=== PATIENT | female | born 1965 | race Caucasian/White ===

== ENCOUNTER 2020-03-13 08:33 | Outpatient (CLI) | payer BC, SELFPAY ==
--- NOTE | 2020-03-13 08:40 | MM_ITS ---
WS: [id number] BILATERAL DIGITAL SCREENING MAMMOGRAM WITH CAD CLINICAL INFORMATION: SCREEN HISTORY: Screening mammogram. No current complaints. COMPARISON: August 26, 2018 TECHNIQUE: Bilateral CC and MLO views. FINDINGS: Fatty-replaced breasts bilaterally. No suspicious focal mass, asymmetry, calcifications, or microstrategy architect ural distortion. No evidence of malignancy. MM/[place] [id number] IMPRESSION: BI-RADS: 1-Negative FOLLOW UP: 1 Year Follow-up Recommend return to annual screening mammography.
== END 2020-03-13 08:34 | disposition home or self-care (01) ==
LOC: RADSHAW 08:37
PROVIDERS: PCP Family Medicine; Visit Provider Family Medicine
DX: Z12.31 Encounter for screening mammogram for malignant neoplasm of breast (principal)
CPT/HCPCS: 77067

== ENCOUNTER 2021-08-07 08:02 | Outpatient (CLI) | payer BC, SELFPAY ==
--- NOTE | 2021-08-07 08:10 | MM_ITS ---
WS: [id number] BILATERAL SCREENING DIGITAL MAMMOGRAM WITH CAD HISTORY: SCREENING COMPARISON: 03/13/2020 and 08/26/2018 Bilateral CC and MLO views submitted. Computer aided detection analyzed. Breast composition: There are scattered areas of fibroglandular density. No suspicious masses, microc alcifications or architectural distortion. Stable intramammary lymph nodes upper outer quadrant RIGHT breast. MM/[place] [id number] IMPRESSION: BI-RADS: 2-Benign FOLLOW UP: 1 Year Follow-up
== END 2021-08-07 08:03 | disposition home or self-care (01) ==
LOC: RADSHAW 08:09
PROVIDERS: PCP Family Medicine; Visit Provider Family Medicine
DX: Z12.31 Encounter for screening mammogram for malignant neoplasm of breast (principal)
CPT/HCPCS: 77067

== ENCOUNTER → 2022-08-29 09:52 | Outpatient (BNVA) | payer BC, SELFPAY | PROVIDERS: PCP Family Medicine; Visit Provider Family Medicine | DX: E11.9 Type 2 diabetes mellitus without complications (principal); E78.00 Pure hypercholesterolemia, unspecified | CPT/HCPCS: 80053; 80061; 83036; 85025 ==

== ENCOUNTER 2022-10-02 12:04 | Outpatient (CLI) | payer BC, SELFPAY ==
--- NOTE | 2022-10-02 12:13 | MM_ITS ---
WS: [id number] Bilateral screening 3D tomosynthesis digital mammogram, 10/02/2022 Clinical Data: SCREENING Comparison: 08/07/2021, 03/13/2020, 08/26/2018, 11/21/2014, 08/21/2009. Findings: The breast parenchymal pattern shows fat replacement. No spiculated masses or clustered calcification s are seen. There are no secondary signs of carcinoma. MM/[place] [id number] Impression: 1. Negative bilateral mammogram unchanged. 2. Recommend annual screening mammograms. BIRADS: 1-Negative FOLLOW UP: 1 Year Follow-up The CAD tool checker was used.
== END 2022-10-02 12:05 | disposition home or self-care (01) ==
LOC: RAD 12:06
PROVIDERS: PCP Family Medicine; Visit Provider Family Medicine
DX: Z12.31 Encounter for screening mammogram for malignant neoplasm of breast (principal)
CPT/HCPCS: 77063; 77067

== ENCOUNTER → 2024-01-28 10:49 | Outpatient (BNVA) | payer BC, SELFPAY | PROVIDERS: PCP Family Medicine; Visit Provider Family Medicine | DX: Z51.81 Encounter for therapeutic drug level monitoring (principal); E11.9 Type 2 diabetes mellitus without complications; Z13.220 Encounter for screening for lipoid disorders; E55.9 Vitamin D deficiency, unspecified; E53.8 Deficiency of other specified B group vitamins; Z00.00 Encounter for general adult medical examination without abnormal findings; I10 Essential (primary) hypertension | CPT/HCPCS: 80053; 80061; 82306; 82607; 83036; 85025 ==

== ENCOUNTER 2024-02-03 11:15 | Outpatient (CLI) | payer BC, SELFPAY ==
--- NOTE | 2024-02-03 11:30 | MM_ITS ---
WS: [id number] BILATERAL SCREENING DIGITAL TOMOSYNTHESIS MAMMOGRAM WITH CAD HISTORY: Screening mammogram COMPARISON: 10/02/2022, 08/26/2018 Bilateral CC and MLO views with tomosynthesis and synthetic mammography submitted. Computer aided det ection analyzed. Breast composition: There are scattered areas of fibroglandular density. No suspicious masses, microc alcifications or architectural distortion. Intramammary lymph nodes upper outer quadrant RIGHT breast are stable. IMPRESSION: MM/[place] [id number] BI-RADS: 2-Benign FOLLOW UP: 1 Year Follow-up
== END 2024-02-03 11:16 | disposition home or self-care (01) ==
LOC: RAD 11:15
PROVIDERS: PCP Family Medicine; Visit Provider Family Medicine
DX: Z12.31 Encounter for screening mammogram for malignant neoplasm of breast (principal)
CPT/HCPCS: 77063; 77067

== ENCOUNTER → 2025-02-07 09:56 | Outpatient (BNVA) | payer BC, SELFPAY | PROVIDERS: PCP Family Medicine; Visit Provider Family Medicine | DX: Z00.00 Encounter for general adult medical examination without abnormal findings (principal); Z51.81 Encounter for therapeutic drug level monitoring; E11.9 Type 2 diabetes mellitus without complications; Z13.6 Encounter for screening for cardiovascular disorders; E53.8 Deficiency of other specified B group vitamins; Z79.899 Other long term (current) drug therapy | CPT/HCPCS: 80053; 80061; 82607; 83036; 85025 ==

== ENCOUNTER 2025-02-27 09:19 | Outpatient (CLI) | payer BC, SELFPAY ==
--- NOTE | 2025-02-27 09:20 | MM_ITS ---
WS: [id number] BILATERAL SCREENING DIGITAL TOMOSYNTHESIS MAMMOGRAM WITH CAD HISTORY: SCREENING COMPARISON: 02/03/2024, 10/02/2022 Bilateral CC and MLO views with tomosynthesis and synthetic mammography submitted. Computer aided detection analyzed. Breast composition: There are scattered areas of fibroglandular density. No suspicious masses, microcalcifications or architectural distortion. Intramammary lymph nodes upper outer quadrant RIGHT breast. MM/MM scr [place] tomosynthesis [id number] IMPRESSION: BI-RADS: 2 - Benign. FOLLOW UP: 1 Year Follow-up
== END 2025-02-27 09:20 | disposition home or self-care (01) ==
PROVIDERS: PCP Family Medicine; Visit Provider Family Medicine
DX: Z12.31 Encounter for screening mammogram for malignant neoplasm of breast (principal); R92.323 Mammographic fibroglandular density, bilateral breasts; R59.0 Localized enlarged lymph nodes
CPT/HCPCS: 77063; 77067

== ENCOUNTER → 2025-08-31 11:32 | Outpatient (BNVA) | payer BC, SELFPAY | PROVIDERS: PCP Family Medicine; Visit Provider Family Medicine | DX: N95.0 Postmenopausal bleeding (principal); E53.8 Deficiency of other specified B group vitamins; Z13.6 Encounter for screening for cardiovascular disorders; E11.9 Type 2 diabetes mellitus without complications; Z51.81 Encounter for therapeutic drug level monitoring | CPT/HCPCS: 80053; 80061; 82607; 83036; 85025; 87624 ==

== ENCOUNTER 2025-09-01 08:25 | Outpatient (CLI) | payer BC, SELFPAY ==
--- NOTE | 2025-09-01 08:29 | XR_ITS ---
WS: [id number] Exam: XR hip LT 2-3V wo/w pel* [id number] Date/Time of Exam: 09/01/2025 8:30 AM Reason For Exam: Left hip pain No acute fracture. Moderate degenerative change of the joint compartment. Hypertrophic bone formation along the superior and inferior acetabulum as well as the femoral head and neck. Normal soft tissues. XR/XR hip LT 2-3V wo/w pel* [id number] IMPRESSION: 1. Moderate osteoarthritis. No fracture.
== END 2025-09-01 08:26 | disposition home or self-care (01) ==
PROVIDERS: PCP Family Medicine; Visit Provider Family Medicine
DX: M25.552 Pain in left hip (principal); M16.12 Unilateral primary osteoarthritis, left hip
CPT/HCPCS: 73502

== ENCOUNTER 2025-09-11 09:11 | Outpatient (CLI) | payer BC, SELFPAY ==
--- NOTE | 2025-09-11 09:15 | USR_ITS ---
PROCEDURE INFORMATION: Exam: US Pelvis, Complete, Non-Obstetric Exam date and time: 09/11/2025 9:35 AM Age: 59 years old Clinical indication: Menstruation abnormalities; Postmenopausal bleeding; Additional info: Postmenopausal bleeding - including transvaginal US TECHNIQUE: Imaging protocol: Transabdominal pelvic nonobstetric ultrasound. Complete exam. Real time ultrasound with image documentation. COMPARISON: CR XR hip LT 2-3V wo/w pel* [id number] 09/01/2025 8:35 AM FINDINGS: Uterus: Anterior wall fibroid 5 mm x 5 mm x 3 mm.. Endometrial stripe is 1 mm Uterus 8.3 cm x 4.2 cm x 6.1 cm. There is moderate fluid collection within the endometrium on transvaginal examination. Right ovary/adnexa: Not visible due to bowel gas Left ovary/adnexa: Not visible due to bowel gas. Intraperitoneal space: No intraperitoneal fluid. Urinary bladder: Normal. US/US pelv w/transvag [id number] IMPRESSION: 1. Small uterus, endometrial fluid collection 2. Uterine fibroid anterior wall of the body 3. Bilateral ovaries are not visible
== END 2025-09-11 09:12 | disposition home or self-care (01) ==
LOC: RAD 09:17
PROVIDERS: PCP Family Medicine; Visit Provider Family Medicine
DX: N95.0 Postmenopausal bleeding (principal); N85.8 Other specified noninflammatory disorders of uterus; D25.9 Leiomyoma of uterus, unspecified; Z90.722 Acquired absence of ovaries, bilateral
CPT/HCPCS: 76830; 76856

== ENCOUNTER → 2025-09-27 14:36 | Outpatient (BNVA) | payer BC, SELFPAY | PROVIDERS: PCP Family Medicine; Visit Provider Obstetrics & Gynecology | DX: N95.0 Postmenopausal bleeding (principal) | CPT/HCPCS: 88305 ==